=== PATIENT | female | born 1950 | race Caucasian/White ===

== ENCOUNTER → 2017-10-28 11:38 | Outpatient (REF) | payer MEDICARE, SELFPAY | LOC: NCHCN 11:38 | PROVIDERS: PCP Specialist/Technologist Athletic Trainer; Visit Provider Physician Assistant Medical | DX: N39.0 Urinary tract infection, site not specified (principal) | CPT/HCPCS: 87077; 87086; 87186 ==

== ENCOUNTER 2017-11-18 09:45 | Outpatient (REF) | payer MEDICARE, SELFPAY ==
[2017-11-18 20:32] LABS: ALT 10 U/L (12-78); AST 20 U/L (15-37); Albumin 3.5 g/dL (3.4-5.0); Alkaline Phosphatase 95 U/L (46-116); Anion Gap 9.2 mmol/L (3-11); BUN 15 mg/dL (7-18); Bilirubin, Total 0.5 mg/dL (0.2-1.0); CO2 25.8 mmol/L (21.0-32.0); CREATININE 0.87 mg/dL (0.55-1.02); Calcium 8.7 mg/dL (8.5-10.1); Chloride 105 mmol/L (98-107); Glucose 109 mg/dL (70-100); Potassium 4.3 mmol/L (3.5-5.1); Sodium 140 mmol/L (136-145); Total Protein 6.8 g/dL (6.4-8.2)
== END 2017-11-18 10:05 ==
LOC: NCHCN 09:45
PROVIDERS: PCP Specialist/Technologist Athletic Trainer; Visit Provider Physician Assistant Medical
DX: I10 Essential (primary) hypertension (principal)
CPT/HCPCS: 80053

== ENCOUNTER 2018-05-11 09:27 | Outpatient (REF) | payer MEDICARE, SELFPAY ==
[2018-05-11 21:08] LABS: ALT 13 U/L (12-78); AST 19 U/L (15-37); Albumin 3.6 g/dL (3.4-5.0); Alkaline Phosphatase 111 U/L (46-116); BUN 10 mg/dL (7-18); Bilirubin, Total 0.3 mg/dL (0.2-1.0); CREATININE 0.83 mg/dL (0.55-1.02); Calcium 9.3 mg/dL (8.5-10.1); Chloride 104 mmol/L (98-107); Cholesterol 160 mg/dL (50-200); Glucose 96 mg/dL (70-100); HDL Cholesterol 51 mg/dL (40-60); LDL CHOLESTEROL 88 mg/dL (<100); Potassium 4.2 mmol/L (3.5-5.1); Sodium 140 mmol/L (136-145); Total Protein 7.1 g/dL (6.4-8.2); Triglyceride 115 mg/dL (30-150)
== END 2018-05-11 09:47 ==
LOC: NCHCN 09:27
PROVIDERS: PCP Specialist/Technologist Athletic Trainer; Visit Provider Nurse Practitioner Family
DX: I10 Essential (primary) hypertension (principal); E78.5 Hyperlipidemia, unspecified
CPT/HCPCS: 80053; 80061; 83721

== ENCOUNTER 2018-10-26 21:29 | Outpatient (REF) | payer MEDICARE, SELFPAY | END 2018-10-26 21:49 | LOC: NCHCN 21:29 | PROVIDERS: PCP Nurse Practitioner Family; Visit Provider Physician Assistant Medical | DX: R60.0 Localized edema (principal) | CPT/HCPCS: 87077; 87086; 87186 ==

== ENCOUNTER 2019-08-10 10:18 | Outpatient (REF) | payer MEDICARE, SELFPAY | END 2019-08-10 10:38 | LOC: NCHCN 10:18 | PROVIDERS: PCP Nurse Practitioner Family; Visit Provider Physician Assistant Medical | DX: R30.0 Dysuria (principal) | CPT/HCPCS: 87077; 87086; 87186 ==

== ENCOUNTER 2019-09-05 14:48 | Outpatient (REF) | payer MEDICARE, SELFPAY | END 2019-09-05 15:08 | LOC: NCHCN 14:48 | PROVIDERS: PCP Nurse Practitioner Family; Visit Provider Physician Assistant Medical | DX: N39.0 Urinary tract infection, site not specified (principal) | CPT/HCPCS: 87077; 87086; 87186 ==

== ENCOUNTER 2019-09-29 11:53 | Outpatient (REF) | payer MEDICARE, SELFPAY ==
[2019-09-29 20:26] LABS: ALT 13 U/L (14-59); AST 21 U/L (15-37); Alkaline Phosphatase 90 U/L (46-116); Anion Gap 10.6 mmol/L (3-11); BUN 10 mg/dL (7-18); Bilirubin, Total 0.4 mg/dL (0.2-1.0); CO2 24.4 mmol/L (21.0-32.0); CREATININE 0.84 mg/dL (0.55-1.02); Calcium 9.3 mg/dL (8.5-10.1); Chloride 104 mmol/L (98-107); Glucose 90 mg/dL (74-106); HDL Cholesterol 46 mg/dL (40-60); LDL CHOLESTEROL 81 mg/dL (<100); Potassium 4.4 mmol/L (3.5-5.1); Sodium 139 mmol/L (136-145)
[2019-09-29 21:08] LABS: Albumin 3.9 g/dL (3.4-5.0); Creatine Kinase 133 U/L (26-192)
== END 2019-09-29 12:13 ==
LOC: NCHCN 11:53
PROVIDERS: PCP Nurse Practitioner Family; Visit Provider Nurse Practitioner Family
DX: E78.5 Hyperlipidemia, unspecified (principal); N39.0 Urinary tract infection, site not specified
CPT/HCPCS: 80053; 82550; 83721; 87077; 83718; 87086; 87186

== ENCOUNTER 2019-10-13 15:15 | Outpatient (REF) | payer MEDICARE, SELFPAY | END 2019-10-13 15:35 | LOC: NCHCN 15:15 | PROVIDERS: PCP Nurse Practitioner Family; Visit Provider Nurse Practitioner Family | DX: N39.0 Urinary tract infection, site not specified (principal) | CPT/HCPCS: 87077; 87086; 87186 ==

== ENCOUNTER 2019-12-02 11:04 | Outpatient (REF) | payer MEDICARE, SELFPAY | END 2019-12-02 11:24 | LOC: NCHCN 11:04 | PROVIDERS: PCP Nurse Practitioner Family; Visit Provider Physician Assistant Medical | DX: N39.0 Urinary tract infection, site not specified (principal) | CPT/HCPCS: 87077; 87086; 87186 ==

== ENCOUNTER 2020-07-02 09:56 | Outpatient (REF) | payer MEDICARE, SELFPAY ==
[2020-07-02 13:48] LABS: HCT 36.2 % (36.0-46.0); HGB 12.2 g/dL (11.2-15.7); MCH 30.9 pg (27.0-33.0); MCHC 33.7 % (32.0-36.0); MCV 91.6 fL (80-95); MPV 9.1 fL (8.0-11.0); Platelet Count 291 10^3/uL (130-400); RBC 3.95 10^6/uL (3.93-5.22); RDW 13.2 % (11.7-14.6); RDW-SD 45.2 fL; WBC 4.96 10^3/uL (4.4-10.8)
[2020-07-02 14:28] LABS: ALT 12 U/L (14-59); AST 17 U/L (15-37); Albumin 3.4 g/dL (3.4-5.0); Alkaline Phosphatase 89 U/L (46-116); Anion Gap 9.9 mmol/L (3-11); BUN 16 mg/dL (7-18); Bilirubin, Total 0.3 mg/dL (0.2-1.0); CO2 26.1 mmol/L (21.0-32.0); CREATININE 1.1 mg/dL (0.55-1.02); Calcium 8.9 mg/dL (8.5-10.1); Chloride 107 mmol/L (98-107); Glucose 92 mg/dL (74-106); HDL Cholesterol 49 mg/dL (40-60); LDL CHOLESTEROL 107 mg/dL (<100); Potassium 4.6 mmol/L (3.5-5.1); Sodium 143 mmol/L (136-145); Total Protein 6.6 g/dL (6.4-8.2)
[2020-07-02 14:46] LABS: Creatine Kinase 52 U/L (26-192)
== END 2020-07-02 09:57 | disposition home or self-care (01) ==
LOC: NCHCN 09:56
PROVIDERS: PCP Nurse Practitioner Family; Visit Provider Nurse Practitioner Family
DX: E78.5 Hyperlipidemia, unspecified (principal); I10 Essential (primary) hypertension; G43.D0 Abdominal migraine, not intractable
CPT/HCPCS: 80053; 82550; 83721; 85027; 83718

== ENCOUNTER 2020-10-16 04:09 | Outpatient (RCR) | payer MEDICARE, SELFPAY ==
--- NOTE | 2020-10-16 11:00 | HOLTER_ITS ---
APPROVED REPORT Conclusion This was a 48-hour Holter monitor ordered for syncope Rhythm throughout was sinus. Average heart rate was 80. Minimum was 64, maximum 126 A total of 3 isolated PVCs and 2 isolated atrial premature beats were seen There was no atrial fibrillation, no high-grade AV block, no pauses greater than 3 seconds
== END 2020-10-30 23:59 | disposition home or self-care (01) ==
LOC: RT 04:09
PROVIDERS: PCP Nurse Practitioner Family; Visit Provider Nurse Practitioner Family
DX: R55 Syncope and collapse (principal); I49.3 Ventricular premature depolarization; I49.1 Atrial premature depolarization
CPT/HCPCS: 93227; 93225; 93226

== ENCOUNTER 2021-07-10 18:13 | Outpatient (REF) | payer MEDICARE, SELFPAY ==
[2021-07-10 19:22] LABS: ALT 11 U/L (14-59); AST 17 U/L (15-37); Anion Gap 8.3 mmol/L (3-11); BUN 20 mg/dL (7-18); CO2 29.7 mmol/L (21.0-32.0); CREATININE 1.1 mg/dL (0.55-1.02); Chloride 105 mmol/L (98-107); Estimated GFR 48.82 (mL/min/1.73m2); Glucose 82 mg/dL (74-106); HDL Cholesterol 62 mg/dL (40-60); LDL CHOLESTEROL 105 mg/dL (<100); Potassium 4.7 mmol/L (3.5-5.1); Sodium 143 mmol/L (136-145)
[2021-07-10 21:59] LABS: Creatine Kinase 109 U/L (26-192)
== END 2021-07-10 18:14 | disposition home or self-care (01) ==
LOC: NCHCN 18:13
PROVIDERS: PCP Nurse Practitioner Family; Visit Provider Nurse Practitioner Family
DX: E78.5 Hyperlipidemia, unspecified (principal); K31.84 Gastroparesis
CPT/HCPCS: 80048; 82550; 83721; 83718; 84450; 84460

== ENCOUNTER 2021-08-22 16:39 | Outpatient (REF) | payer MEDICARE, SELFPAY | END 2021-08-22 16:40 | disposition home or self-care (01) | LOC: NCHCN 16:39 | PROVIDERS: PCP Nurse Practitioner Family; Visit Provider Family Medicine | DX: R30.0 Dysuria (principal); N39.0 Urinary tract infection, site not specified | CPT/HCPCS: 87077; 87086; 87186 ==

== ENCOUNTER → 2021-09-06 00:47 | Outpatient (CLI) | payer MEDICARE, SELFPAY ==
--- NOTE | 2021-09-06 14:49 | DI.DEXA_ITS ---
Exam(s) XR DEXA BONE DENSITY W/WO KATTY EXAM: XR DEXA BONE DENSITY W/WO KATTY CLINICAL HISTORY: MENOPAUSAL, Z78.0; SCREENING FOR OSTEOPOROSIS, Z13.820 TECHNIQUE: [employer] Horizon C densitometer analysis of left hip, lumbar spine and left forearm. COMPARISON: No exams were available for comparison FINDINGS: Lateral view of the thoracic and lumbar spine shows no evidence of compression fractures. Bone mineral density measurements of the lumbar spine correspond to a total T-score of -2.7, in the osteoporotic range. Bone mineral density measurements of the left hip correspond to a total T-score of -2.5 . The femora l neck T-score is -2.9, in the osteoporotic range. . The left forearm bone mineral density measurements correspond to a T-score of the distal 3rd of -2.1 , in the osteopenic range.. IMPRESSION: Osteoporosis of the lumbar spine and left hip. Osteopenia of the left forearm.
--- NOTE | 2021-09-06 15:00 | DI.MAMMO_ITS ---
Exam(s) MAMMO SCREENING EXAM: MAMMO SCREENING CLINICAL HISTORY: SCREENING, Z12.31 TECHNIQUE: Mammograms were interpreted according to the usual protocol including computer analysis w [employer] CAD system, tomosynthesis and C-view imaging. COMPARISON: 2013 through 2016 FINDINGS: The breasts are composed of heterogeneously dense fibroglandular densities, Breast Density category C . No suspicious masses or suspicious microcalcifications are seen. Stable area of nodularity in the storey perior right breast No skin thickening or abnormal axillary lymph nodes are seen. There has been no significant change from prior exams. IMPRESSION: BI-RADS Cat 2 - Benign Findings Yearly screening mammography is recommended. Breast Density Category C, heterogeneously Dense. The mammogram demonstrates the patient's breast tissue is dense. Dense breast tissue is very common a nd is not abnormal but dense breast tissue can make it harder to find cancer on a mammogram. Also, de nse breast tissue may increase breast cancer risk. This information about the result of the mammogram report was provided to the patient to raise their awareness. Use this report when you speak with the patient about their risks for breast cancer, which includes their family history. At that time, you may recommend additional screening tests (Ultrasound or MRI) as they might be useful based on their r isk. A negative radiographic report should not delay biopsy if a dominant or clinically suspicious mass is present. Up to ten percent of cancers are not identified on mammography. A negative report may reinforce clinical impression. Adenosis and dense breasts may obscure an underlying neoplasm. False positive reports average 6 to 10%.
== END ==
PROVIDERS: PCP Nurse Practitioner Family; Visit Provider Nurse Practitioner Family
DX: Z12.31 Encounter for screening mammogram for malignant neoplasm of breast (principal); Z13.820 Encounter for screening for osteoporosis; R92.8 Other abnormal and inconclusive findings on diagnostic imaging of breast; M81.0 Age-related osteoporosis without current pathological fracture; M85.832 Other specified disorders of bone density and structure, left forearm; Z78.0 Asymptomatic menopausal state
CPT/HCPCS: 77063; 77067; 77080

== ENCOUNTER → 2021-11-19 01:13 | Outpatient (CLI) | payer MEDICARE, SELFPAY ==
--- NOTE | 2021-11-19 11:15 | DI.US_ITS ---
Exam(s) US SOFT TISS ABD WALL/LOW BACK EXAM: US SOFT TISS ABD WALL/LOW BACK CLINICAL HISTORY: CYST, L72.9, RT FLANK AREA. TECHNIQUE: Ultrasound was performed using standard protocol. COMPARISON: US RENAL ULTRASOUND(P) from 03/31/2016 FINDINGS: Ultrasound examination of the area of concern on the posterior right paracentral aspect of the back w as performed. There is a relatively well-defined non cystic finding at this level measuring 5.4 x 5.2 x 2.6 cm. Brewster s appearance of a probable lipoma. No cystic the cross nor necrotic areas noted therein. Minimal bl ood flow noted therein. IMPRESSION: There is a nonvascular 5.4 x 5.2 x 2.6 cm non cystic probable fatty mass corresponding to the palpabl e finding. Probably a lipoma but cannot completely exclude more concerning pathology. Surgical cons ultation recommended. DATA REPOSITORY:
== END ==
PROVIDERS: PCP Nurse Practitioner Family; Visit Provider Nurse Practitioner Family
DX: L72.9 Follicular cyst of the skin and subcutaneous tissue, unspecified (principal)
CPT/HCPCS: 76705

== ENCOUNTER → 2021-12-04 09:19 | Outpatient (BNVA) | payer MEDICARE, SELFPAY | PROVIDERS: PCP Nurse Practitioner Family; Referring Provider Nurse Practitioner Family; Visit Provider Surgery | DX: L72.9 Follicular cyst of the skin and subcutaneous tissue, unspecified (principal) | CPT/HCPCS: 99213 ==

== ENCOUNTER 2022-01-03 06:08 | Day surgery (SDC) | payer MEDICARE, SELFPAY ==
--- NOTE | 2022-01-02 20:21 | PDOC.DSDIS_ITS ---
Date of service: 01/03/22 Time of Service: 08:03 Discharge Plan Disposition Patient Disposition: HOME Condition: Good Discharge Details Reason For Visit: excision and primary closure Attending Provider: Estevan Turner Primary Care Provider: Savanna Denny Home Meds and New Rx's Prescriptions: Continued acetaminophen [Tylenol] 325 MG tablet 325 mg PO PRN PRN simvastatin 20 mg tablet 20 mg PO QHS losartan [Cozaar] 25 mg tablet 25 mg PO DAILY amitriptyline 50 mg tablet 50 mg PO QHS domperidone 10 mg tablet 10 mg PO DAILY Rx Instructions: Medication comes from , GI, medication from Kristy per referral note pantoprazole [Protonix] 40 mg Tablet,Delayed Release (Dr/Ec) 40 mg PO DAILY Discharge Instructions Instructions: Lipoma Removal (DC) Additional Instructions: 1. Resume all of your medications. 2. Okay to use tylenol and ibuprofen over the counter as needed. 3. It is okay to use heating pads or cold packs in the area for your comfort 4. Leave bandage in place for 24 hours, then remove. 5. Shower with warm soapy water. Pat dry. Use a bandaid if needed to protect your clothing. 6. No soaking or tub baths until I see you in the office. 7. No heavy lifting until I see you in the office. 8.Call the office (or go directly to the emergency room after hours) if you notice any of the following: Develop chills (warm to touch), or if you have a thermometer and your temperature is above 101 Difficulty breathing or difficultly swallowing Persistent vomiting Any bleeding ? exceeding one tablespoon 9. Call your physician if the site where your intravenous was started becomes red, swollen, painful, and warm to touch. Referrals: Estevan Turner MD [ [facility] STAFF PHYSICIAN] - (10-14 days for routine follow up) Activity:: Activity as Tolerated Remove Dressings/Wound Care:: 24 hours Shower/Bathe:: 24 hours Diet:: As Tolerated Discharge Orders Discharge Orders: Discharge Order (Routine); Ordered 01/02/22 Ordered By: Estevan Turner DS: Diagnosis Discharge Diagnosis (1) Lipoma: Status: Acute Asessment and Plan: The lipoma has been completely excised. I will send it for pathology, and I will let you know about the final results when I get them from the lab.
--- NOTE | 2022-01-02 20:23 | W.PM.OP ---
Date of service: 01/03/22 Time of Service: 08:05 Operative Note Operative Note DATE OF PROCEDURE: 01/03/22 PRE-OP DIAGNOSIS: Lipoma POST-OP DIAGNOSIS: same PROCEDURE: Excision and linear closure of right lower back lipoma SURGEON: Estevan Turner DENTAL AMALGAM PROCESSOR: Ale Velazquez Refer to Anesthesia Record ESTIMATED BLOOD LOSS: 25 PATHOLOGY: other (Back mass) COMPLICATIONS: None Patient was transported to: same day Patient's condition: stable Indications: Selene is a 71-year-old woman with a growing right lower back soft tissue mass that seems consistent with lipoma. It is increasing in size, and causing more frequent discomfort. Procedure Description: After the institution of monitored anesthetic care, the patient was assisted into the left lateral decubitus position, and heavier sedation was introduced. Care was taken to pad all of the points of contact. I then prepped and draped the area in the usual fashion. I established a large field block with local anesthetic. Next, I made a longitudinal incision along the length of the soft tissue mass. I dissected down through the skin and subcutaneous tissues to the external capsule of what appeared to be a lipoma. Next, I began circumferential dissection of the mass that extended down to the muscular fascia. Great care was taken to encompass the capsule of the lipoma to minimize the chances of recurrence. The dissection was carried out along the cephalad and caudad aspects of the incision again elevating the mass off of the underlying soft tissues. When the dissection reached the medial most portion, the specimen was completely excised and passed off the field. All sent for permanent pathology because of the size of the mass, but it seems consistent with a simple lipoma. The surgical field was then carefully inspected. There was a small amount of bleeding from a focal point towards the medial aspect that was easily controlled with the Bovie. Next, the deep tissues were approximated with interrupted Vicryl stitches. Skin was closed with running subcuticular stitches. Bandages were applied, the patient was transferred to the recovery unit. Final excision diameters were approximately 11 cm long by 7 cm wide by 5 cm deep.
[2022-01-03 06:36] VITALS: BP 175/80; PULSE 102; RESP 16; TEMP 36.6; O2SAT 97
[2022-01-03] MEDS: Lactated Ringers 1,000 ML 80 ML IV (06:40)
[2022-01-03] MEDS: VANCOMYCIN/WATER (PEG) 1 GM/200 ML BAG IVPB (06:47)
[2022-01-03] MEDS: Celecoxib 200 MG CAP PO (06:53)
[2022-01-03] MEDS: Gabapentin 300 MG CAP 600 MG PO (06:53)
[2022-01-03] MEDS: Acetaminophen 500 MG TAB 1000 MG PO (06:53)
--- NOTE | 2022-01-03 07:06 | ANES.PREOP_ITS ---
General Info Date of Service Date Performed: 01/03/22 Height: 4 ft 11 in Weight: 53.4 kg Body Mass Index (BMI): 23.8 Surgical Procedure: Operation Date: 01/03/22 07:40 Proposed Procedure Side Surgeon p Excision and Linear Closure of Rt Flank Lipoma Right Estevan Turner MD Meds Allergies and Home Medications Allergies Allergy/AdvReac Type Severity Reaction Status Date / Time lisinopril Allergy Mild Pt doesn't Unverified 01/03/22 06:32 remember Penicillins Allergy Pt doesn't Unverified 01/03/22 06:32 remember Sulfa (Sulfonamide Allergy Pt doesn't Unverified 01/03/22 06:32 Antibiotics) remember Home Medication Medication Instructions Recorded acetaminophen 325 mg tablet 325 mg PO PRN PRN 03/24/16 (Tylenol) amitriptyline 50 mg tablet 50 mg PO QHS 11/15/21 domperidone 10 mg PO DAILY 11/15/21 losartan 25 mg tablet (Cozaar) 25 mg PO DAILY 11/15/21 simvastatin 20 mg tablet 20 mg PO QHS 11/15/21 pantoprazole 40 mg tablet,delayed 40 mg PO DAILY 01/01/22 release (Protonix) Current Visit Medications: Current Medications Generic Name Dose Route Start Last Admin Trade Name Freq PRN Reason Stop Dose Admin Acetaminophen 1,000 mg 01/03/22 06:00 01/03/22 06:53 Acetaminophen 500 Mg Tab PO 01/03/22 16:00 1,000 mg PREOP KELLEN Administration Celecoxib 200 mg 01/03/22 06:00 01/03/22 06:53 Celecoxib 200 Mg Cap PO 01/03/22 16:00 200 mg PREOP KELLEN Administration Gabapentin 600 mg 01/03/22 06:00 01/03/22 06:53 Gabapentin 300 Mg Cap PO 01/03/22 16:00 600 mg PREOP KELLEN Administration Ringer's Solution 1,000 mls @ 80 mls/hr 01/03/22 06:00 01/03/22 06:40 IV 02/01/22 23:59 80 mls/hr INFUSION KELLEN Administration Vancomycin/PEG/NADA/Lysine/Water 1 gm in 200 mls @ 200 mls/hr 01/03/22 06:00 01/03/22 06:47 Vancocin Injection IVPB 01/03/22 16:00 200 mls/hr PREOP KELLEN Administration Ondansetron HCl 8 mg/ Sodium 54 mls @ 200 mls/hr 01/02/22 20:24 Chloride IVPB Q6H PRN PRN IV Miscellaneous Supplies 1 each 01/03/22 06:00 Iv Access IV 02/01/22 23:59 DIRECTED KELLEN Morphine Sulfate 2 mg 01/02/22 20:24 Morphine 4 Mg/Ml Syr IVP Q1H PRN PRN Oxycodone HCl 5 mg 01/02/22 20:24 Oxycodone 5 Mg Tab PO Q3H PRN PRN Pain Sodium Chloride 0 ml 01/03/22 06:00 Normal Saline Flush 10 Ml Syr IV 02/01/22 23:59 PRN PRN Sodium Chloride 0 ml 01/03/22 06:00 Normal Saline 10 Ml Vial IJ 02/01/22 23:59 DIRECTED PRN Sterile Water 0 ml 01/03/22 06:00 Water,Injection,Sterile 10 Ml Vial IJ 02/01/22 23:59 DIRECTED PRN PFSH Active Problems Active Problems: Problem Status Onset Code Lipoma D17.9 Right flank pain R10.9 Osteoporosis M81.0 Medical History Medical History (Updated 01/02/22 @ 20:21 by Estevan Turner MD) Depression Gastroparesis H/O: HTN (hypertension) Hyperlipidemia Recurrent UTI Situational anxiety Spasm of abdominal muscles of right side Syncope and collapse Tobacco abuse Surgical History Surgical History Hx of cholecystectomy Tobacco Smoking/Tobacco Use Status: Former Tobacco Use Alcohol Alcohol Intake: never Substance Use Substance use: Never Substance use type: does not use Vital Signs and Lab Results Vital Signs Most Recent Vital Signs in EMR: Most Recent Vital Signs Temp Pulse Resp BP Pulse Ox 36.6 C 102 H 16 175/80 H 97 01/03/22 06:36 01/03/22 06:36 01/03/22 06:36 01/03/22 06:36 01/03/22 06:36 Lab Results Blood Type / Crossmatch: 2 No Data to Display Complete Blood Count: No Data to Display Complete Metabolic Panel: No Data to Display Liver Function Panel: No Data to Display Coagulation Panel: No Data to Display Cardiac Panel: No Data to Display Arterial Blood Gas: No Data to Display Venous Blood Gas: No Data to Display Pancreas Panel: No Data to Display Thyroid Panel: No Data to Display Infectious Disease: No Data to Display Blood Cultures: No Data to Display Toxicology Panel: No Data to Display Anesthesia Assessment and Plan Anesthesia History Personal History: No History of Anesthesia Complications Family History: No Family History of Anesthesia Complications Exercise Tolerance Exercise Tolerance: Metabolic Equivalents>4 Pertinent Negatives Pertinent Negatives: No Symptoms of GERD, No Major Cardiovascular Symptoms or Complaints, No Major Pulmonary Symptoms or Complaints and No History of CVA/TIA Cardiac & Pulmonary Exam Cardiac Exam: Normal S1/S2 Heart Sounds Pulmonary Exam: Clear Bilateral Breath Sounds Implantable Cardiac Device Does patient have a Pacemaker or an ICD?: No Airway Exam Known Difficult Airway: No Mallampati Class: 2 Mouth Opening: Normal (> 3cm) Thyromental Distance: Greater than 3 cm Neck Range of Motion: Full ROM Neck Circumference: Normal Teeth Condition: Normal Dentition and Removable Dentures/Plates Upper (Upper partial) ASA Classification ASA Score: ASA 2 Emergency Case?: No NPO Status NPO Status: NPO Clears >2 hours, Solids >8 hours Anesthesia Plan Resuscitation Status: Full Code Anesthesia Technique: General Anesthesia Airway Planned: Natural Airway Monitors Used: Standard Monitors
[2022-01-03 07:35] VITALS: BMI 23.8
[2022-01-03] MEDS: Bupivacaine 0.25% Pres-Free 30 ML VIAL (07:47)
--- NOTE | 2022-01-03 08:00 | SKI_PTH ---
PATIENT: Selene Rivera LOC: [facility] U#:[id number] AGE/SX: 71/F ROOM: RE01/03/[address]: Estevan Turner MD : 1950 BED: DIS: 01/03/2022 SPEC #: [id number] RECD: 01/03/22 11:29 STATUS: VIKY REAgustin #: [id number] HAYES: 01/03/22 08:[address]: Estevan Turner DEPT: Surgical Specimen RECD BY: Malu Michaels ENTERED: 01/03/22 11:30 SP TYPE: JOSIE MCNAMARA DR: Savanna Denny Tissues: 1 - SKIN BIOPSY(SHAVE/PUNCH) Procedures: GROSS AND MICRO LEVEL 4 MDM2F FISH, Tissue Interphases,25-99 Comments: [id number]
[2022-01-03 08:18] VITALS: BP 95/49; PULSE 71; RESP 16; TEMP 36.7; O2SAT 96
[2022-01-03 08:42] VITALS: BP 136/57; PULSE 73; RESP 18; TEMP 36.6; O2SAT 99
--- NOTE | 2022-01-03 09:31 | W.ANESPOSTOP ---
Postoperative Evaluation Date, Time and Location Date Performed: 01/03/22 Time Performed: 08:51 Patient Location: Day Surgery Unit Vital Signs Most Recent Imported Vital Signs: Most Recent Vital Signs Temp Pulse Resp BP Pulse Ox 36.6 C 73 18 136/57 L 99 01/03/22 08:42 01/03/22 08:42 01/03/22 08:42 01/03/22 08:42 01/03/22 08:42 Pain Score Most Recent Pain Score: Most Recent Pain Score Pain Level 0 01/03/22 08:42 Assessment Mental Status: Awake (Alert & Oriented to Patient Baseline) Airway and Respiratory Function: Patent airway with normal (patient baseline) respiratory exam Cardiovascular Function: Hemodynamically Stable Hydration Status: Adequately Hydrated Nausea & Vomiting: No Nausea or Vomiting Pain: Pt. Denies Any Pain Peripheral Nerve Block: Patient did not receive a nerve block
== END 2022-01-03 09:10 | disposition home or self-care (01) ==
LOC: SUR 06:08
PROVIDERS: PCP Nurse Practitioner Family; Visit Provider Surgery
PROC: (CPT 21931; principal; 2022-01-03 07:30)
DX: D17.1 Benign lipomatous neoplasm of skin and subcutaneous tissue of trunk (principal); F17.210 Nicotine dependence, cigarettes, uncomplicated; E78.5 Hyperlipidemia, unspecified
CPT/HCPCS: 21931; 88271; 88274; 88305; J1885; J2250; J2405

== ENCOUNTER → 2022-01-13 09:18 | Outpatient (BNVA) | payer MEDICARE, SELFPAY | PROVIDERS: PCP Nurse Practitioner Family; Referring Provider Nurse Practitioner Family; Visit Provider Surgery | DX: Z48.89 Encounter for other specified surgical aftercare (principal); D17.9 Benign lipomatous neoplasm, unspecified ==

== ENCOUNTER 2022-07-24 10:56 | Outpatient (REF) | payer MEDICARE, SELFPAY ==
[2022-07-24 15:35] LABS: ALT 16 U/L (14-59); AST 27 U/L (15-37); HDL Cholesterol 66 mg/dL (40-60); LDL CHOLESTEROL 106 mg/dL (<100)
== END 2022-07-24 10:57 | disposition home or self-care (01) ==
LOC: NCHCN 10:56
PROVIDERS: PCP Nurse Practitioner Family; Visit Provider Nurse Practitioner Family
DX: I10 Essential (primary) hypertension (principal); E78.5 Hyperlipidemia, unspecified
CPT/HCPCS: 83721; 83718; 84450; 84460

== ENCOUNTER 2022-08-04 09:29 | Day surgery (SDC) | payer MEDICARE, SELFPAY ==
[2022-08-04] MEDS: Tropicam./Phenyleph. (1/2.5%) 5 ML BTL OS ×3 (10:31→10:45)
[2022-08-04 10:34] VITALS: BP 184/79; PULSE 87; RESP 16; TEMP 36.3; O2SAT 98
[2022-08-04 10:39] VITALS: BP 171/83; PULSE 85
--- NOTE | 2022-08-04 11:49 | W.ANESPRE ---
General Info Date of Service Date Performed: 08/04/22 Height: 4 ft 11 in Weight: 57.9 kg Body Mass Index (BMI): 25.7 Surgical Procedure: Operation Date: 08/04/22 11:25 Proposed Procedure Side Surgeon p Cataract Extraction with IOL Implant Left Sarbjit Jhaveri MD Meds Allergies and Home Medications Allergies Allergy/AdvReac Type Severity Reaction Status Date / Time lisinopril Allergy Mild Pt doesn't Unverified 08/04/22 10:28 remember Penicillins Allergy Pt doesn't Unverified 08/04/22 10:28 remember Sulfa (Sulfonamide Allergy Pt doesn't Unverified 08/04/22 10:28 Antibiotics) remember Home Medication Medication Instructions Recorded acetaminophen 325 mg tablet 325 mg PO PRN PRN 03/24/16 (Tylenol) amitriptyline 50 mg tablet 50 mg PO QHS 11/15/21 domperidone 10 mg PO DAILY 11/15/21 losartan 25 mg tablet (Cozaar) 25 mg PO DAILY 11/15/21 simvastatin 20 mg tablet 20 mg PO QHS 11/15/21 pantoprazole 40 mg tablet,delayed 40 mg PO DAILY 01/01/22 release (Protonix) Current Visit Medications: Current Medications Generic Name Dose Route Start Last Admin Trade Name Freq PRN Reason Stop Dose Admin Acetaminophen 1,000 mg 08/04/22 06:00 Acetaminophen 500 Mg Tab PO 09/03/22 05:59 Q4H PRN PRN Balanced Salt Solution 500 ml 08/04/22 06:00 Balanced Salt Soln.-Plus 500 Ml Bag OP 09/03/22 05:59 DIRECTED [facility] Miscellaneous Medication 0 ml 08/04/22 06:00 Prednisolone 1%, Moxifloxacin 0.5%, Nepafenac 0.1% 5ml Btl OS 09/03/22 05:59 DIRECTED KELLEN Miscellaneous Medication 0 ml 08/04/22 06:00 08/04/22 10:45 Tropicam./Phenyleph. (1/2.5%) 5 Ml Btl OS 09/03/22 05:59 1 drp DIRECTED KELLEN Administration Tetracaine HCl 0 ml 08/04/22 06:00 Tetracaine 0.5% 4 Ml Btl OS 09/03/22 05:59 DIRECTED KELLEN PFSH Active Problems Active Problems: Problem Status Onset Code Right flank pain R10.9 Osteoporosis M81.0 Lipoma D17.9 Nuclear age-related cataract, left eye H25.12 Medical History Medical History Depression Gastroparesis H/O: HTN (hypertension) Hyperlipidemia Recurrent UTI Situational anxiety Spasm of abdominal muscles of right side Syncope and collapse Tobacco abuse Surgical History Surgical History (Updated 08/04/22 @ 10:27 by Meenakshi Wilder) Hx of cholecystectomy S/P excision of lipoma right back 2021 Tobacco Smoking/Tobacco Use Status: Former Tobacco Use Alcohol Alcohol Intake: never Substance Use Substance use: Never Substance use type: does not use Vital Signs and Lab Results Vital Signs Most Recent Vital Signs in EMR: Most Recent Vital Signs Temp Pulse Resp BP Pulse Ox 36.3 C L 85 16 171/83 H 98 08/04/22 10:34 08/04/22 10:39 08/04/22 10:34 08/04/22 10:39 08/04/22 10:34 Lab Results Blood Type / Crossmatch: No Data to Display Complete Blood Count: No Data to Display Complete Metabolic Panel: No Data to Display Liver Function Panel: Alanine Aminotransferase (ALT/SGPT) 16 U/L (14-59) 07/24/22 10:20 Aspartate Amino Transf (AST/SGOT) 27 U/L (15-37) 07/24/22 10:20 Coagulation Panel: No Data to Display Cardiac Panel: No Data to Display Arterial Blood Gas: No Data to Display Venous Blood Gas: No Data to Display Pancreas Panel: No Data to Display Thyroid Panel: No Data to Display Infectious Disease: No Data to Display Blood Cultures: No Data to Display Toxicology Panel: No Data to Display Anesthesia Assessment and Plan Anesthesia History Personal History: No History of Anesthesia Complications Family History: No Family History of Anesthesia Complications Exercise Tolerance Exercise Tolerance: Metabolic Equivalents>4 Pertinent Negatives Pertinent Negatives: No Symptoms of GERD Cardiac & Pulmonary Exam Cardiac Exam: Normal S1/S2 Heart Sounds Pulmonary Exam: Clear Bilateral Breath Sounds Implantable Cardiac Device Does patient have a Pacemaker or an ICD?: No Airway Exam Known Difficult Airway: No Mallampati Class: 2 Mouth Opening: Normal (> 3cm) Thyromental Distance: Greater than 3 cm Neck Range of Motion: Full ROM Neck Circumference: Normal Teeth Condition: Normal Dentition and Removable Dentures/Plates Upper (Upper partial) ASA Classification ASA Score: ASA 2 Emergency Case?: No NPO Status NPO Status: NPO Clears >2 hours, Solids >8 hours Anesthesia Plan Resuscitation Status: Full Code Anesthesia Technique: MAC Anesthesia Airway Planned: Natural Airway Monitors Used: Standard Monitors
[2022-08-04 11:50] VITALS: BMI 25.7
[2022-08-04] MEDS: Balanced Salt Soln.-PLUS 500 ML BAG OP (12:09)
[2022-08-04] MEDS: Tetracaine 0.5% 4 ML BTL OS (12:10)
[2022-08-04] MEDS: Lidocaine 1% Pres-Free 5 ML VIAL (12:10)
[2022-08-04] MEDS: Duovisc Viscoelastic System EACH 1 EACH (12:10)
[2022-08-04] MEDS: Phenylephrine/Lidocaine (15/10) MG/ML 1 ML VIAL (12:11)
[2022-08-04] MEDS: Povidone-Iodine Ophth 30 ML BTL (12:12)
--- NOTE | 2022-08-04 12:33 | W.PM.DSUDISC ---
Date of service: 08/04/22 Time of Service: 12:33 Discharge Plan Disposition Patient Disposition: Home Discharge Details Attending Provider: Sarbjit Jhaveri Primary Care Provider: Savanna Denny Home Meds and New Rx's Prescriptions: No Action acetaminophen [Tylenol] 325 MG tablet 325 mg PO PRN PRN simvastatin 20 mg tablet 20 mg PO QHS losartan [Cozaar] 25 mg tablet 25 mg PO DAILY amitriptyline 50 mg tablet 50 mg PO QHS domperidone 10 mg tablet 10 mg PO DAILY Rx Instructions: Medication comes from , GI, medication from Kristy per referral note pantoprazole [Protonix] 40 mg Tablet,Delayed Release (Dr/Ec) 40 mg PO DAILY Discharge Instructions Stand Alone Forms: Post-op Topical Cataract, Sabas Garcia (DSU) Discharge Orders Discharge Orders: Discharge Order (Routine); Ordered 08/04/22 Ordered By: Sarbjit Jhaveri DS: Diagnosis Discharge Diagnosis (1) Nuclear age-related cataract, left eye: Status: Resolved
--- NOTE | 2022-08-04 12:35 | ROE_ITS ---
Date of service: 08/04/22 Time of Service: 12:35 Operative Note Operative Note DATE OF PROCEDURE: 08/04/22 PRE-OP DIAGNOSIS: Dense nuclear cataract, left eye POST-OP DIAGNOSIS: same PROCEDURE: Cataract extraction using phacoemulsification with intraocular lens implant, left eye SURGEON: Sarbjit Jhaveri ANESTHESIA TYPE: Local By Surgeon and MAC Refer to Anesthesia Record PATHOLOGY: none sent COMPLICATIONS: None Patient was transported to: same day Patient's condition: stable Implants: Cole Clareon [id number] Indications: Progressive decreased vision due to cataract, left eye Procedure Description: CATARACT SURGERY OPERATIVE REPORT PREOPERATIVE DIAGNOSIS: Dense nuclear cataract, left eye POSTOPERATIVE DIAGNOSIS: Same OPERATION: Cataract extraction using phacoemulsification with posterior chamber intraocular lens implant, left eye. IOL: IOL Account Manager Education/Model: Cole Clareon [id number] IOL Power: + 23.5 diopters IOL Serial Number: [id number] Optic Diameter: 6.0mm Haptic/Overall Diameter: 13.0mm PHACO INFO: Cole AW-Energyurion Vision System with OZil and Active Fluidics Cumulative Dispersed Energy (CDE): 17.89 seconds SURGEON: Sarbjit Jhaveri MD, BEVERLY ANESTHESIA: Monitored Anesthesia Care (MAC), with local sub-tenon's anesthetic infiltration COMPLICATIONS: None SPECIMENS: None INDICATIONS FOR PROCEDURE: The patient is a 72-year-old lady with history of diminished visual acuity in her left eye secondary to the development of dense nuclear cataract. She is significantly symptomatic that she desires cataract surgery and attempt to improve and maximize her vision. The option of cataract surgery was offered to the patient and she wished to proceed. See office notes for detailed information. PROCEDURE: The correct surgical eye was identified and marked as the left eye and the pupil was dilated in the preoperative area using mydriatics and cycloplegics. The dilated pupil size was 5.5 mm. The patient elected to proceed without oral sedation. The patient was brought to the operating room where cardiopulmonary monitoring was instituted and surgical time-out was performed, confirming the correct operative eye and IOL power. Topical anesthesia was administered and ophthalmic povidone-iodine 5% was instilled into the conjunctival fornices. The alena-ocular area was prepped with Betadine 10% solution and draped in the usual sterile fashion for intraocular surgery, including an aperture drape. A Tegaderm transparent film dressing was cut in half and used to cover the lashes and lid margins. Care was taken to sequester the lashes and lid margins under the Tegaderm dressing. A lid speculum was placed between the lids of the operative eye and the Cole Lux[employer] Revalia operating microscope was maneuvered into position. Corinne scissors were then used to make a conjunctival buttonhole approximately 6mm posterior to the limbus in the inferonasal quadrant. Blunt dissection was carried out to expose bare sclera, and a blunt-tipped sub-tenon?s anesthesia cannula was introduced and passed posteriorly along the globe where non- preserved plain lidocaine was injected into posterior sub-Tenon?s space. A sideport knife was used to make a paracentesis port. Intraocular phenylephrine/lidocaine was injected into the anterior chamber. The anterior chamber was then filled with viscoelastic. A keratome knife was used construct a two-plane clear corneal tunnel extending 2.0mm into clear cornea. A flap was raised on the anterior capsule and capsulorhexis forceps were used to complete a continuous curvilinear capsulorhexis of 5.5 mm. Balanced salt solution was then used to perform cortical cleaving hydrodissection and nuclear hydrodelineation until the lens could be freely rotated within the capsular bag. The lens nucleus was then disassembled and removed within the capsular bag and iris plane using phacoemulsification. Residual cortical material was removed using the irrigation/aspiration handpiece. The posterior capsule was carefully polished to remove as much residual lens epithelial cells as safely possible. The capsular bag was then inflated and the anterior chamber deepened with viscoelastic. The lens implant described above was inserted into the capsular bag using the Cole Autonome Injector. A Kuglen hook was used to dial the IOL into position. Residual viscoelastic was then removed first from posterior to the IOL, then from the anterior chamber using the I/A handpiece. The lens implant was noted to center nicely within the capsular bag. The incisions were stromally hydrated, and the anterior chamber was reformed using BSS. Then 0.5cc of moxifloxacin 1.0mg/ml were injected into the capsular bag and anterior chamber. The incisions were checked with a Weck spear and found to be secure. Several drops of ophthalmic povidone-iodine 5% were then applied to the eye followed by two drops of Imprimis combination prednisolone/moxifloxacin/nepafenac solution. The drapes were removed and a clear plastic protective eye shield was placed over the eye. The patient was then returned to Same Day Surgery in stable condition.
[2022-08-04 12:38] VITALS: BP 167/85; PULSE 87; RESP 18; TEMP 36.3; O2SAT 99
--- NOTE | 2022-08-04 12:42 | W.ANESPOSTOP ---
Postoperative Evaluation Date, Time and Location Date Performed: 08/04/22 Time Performed: 12:42 Patient Location: Day Surgery Unit Vital Signs Most Recent Imported Vital Signs: Most Recent Vital Signs Temp Pulse Resp BP Pulse Ox 36.3 C L 87 18 167/85 H 99 08/04/22 12:38 08/04/22 12:38 08/04/22 12:38 08/04/22 12:38 08/04/22 12:38 Pain Score Most Recent Pain Score: Most Recent Pain Score Pain Level 0 08/04/22 12:38 Assessment Mental Status: Awake (Alert & Oriented to Patient Baseline) Airway and Respiratory Function: Patent airway with normal (patient baseline) respiratory exam Cardiovascular Function: Hemodynamically Stable Hydration Status: Adequately Hydrated Nausea & Vomiting: No Nausea or Vomiting Pain: Pt. Denies Any Pain Peripheral Nerve Block: Patient did not receive a nerve block
== END 2022-08-04 12:57 | disposition home or self-care (01) ==
PROVIDERS: PCP Nurse Practitioner Family; Visit Provider Ophthalmology
PROC: (CPT 66984; principal; 2022-08-04 11:15)
DX: H25.12 Age-related nuclear cataract, left eye (principal); I10 Essential (primary) hypertension
CPT/HCPCS: 66984; V2632

== ENCOUNTER 2022-08-15 09:34 | Day surgery (SDC) | payer MEDICARE, SELFPAY ==
[2022-08-15 10:25] VITALS: BP 188/86; PULSE 98; RESP 16; TEMP 36.9; O2SAT 97
[2022-08-15] MEDS: Tropicam./Phenyleph. (1/2.5%) 5 ML BTL OD ×3 (10:31→10:43)
--- NOTE | 2022-08-15 10:35 | W.ANESPRE ---
General Info Date of Service Date Performed: 08/15/22 Height: 4 ft 11 in Weight: 56.5 kg Body Mass Index (BMI): 25.1 Surgical Procedure: Operation Date: 08/15/22 12:40 Proposed Procedure Side Surgeon p Cataract Extraction with IOL Implant Right Sarbjit Jhaveri MD Meds Allergies and Home Medications Allergies Allergy/AdvReac Type Severity Reaction Status Date / Time lisinopril Allergy Mild Pt doesn't Verified 08/15/22 10:23 remember Penicillins Allergy Pt doesn't Verified 08/15/22 10:23 remember Sulfa (Sulfonamide Allergy Pt doesn't Verified 08/15/22 10:23 Antibiotics) remember Home Medication Medication Instructions Recorded acetaminophen 325 mg tablet 325 mg PO PRN PRN 03/24/16 (Tylenol) amitriptyline 50 mg tablet 50 mg PO QHS 11/15/21 domperidone 10 mg PO DAILY 11/15/21 losartan 25 mg tablet (Cozaar) 25 mg PO DAILY 11/15/21 simvastatin 20 mg tablet 20 mg PO QHS 11/15/21 pantoprazole 40 mg tablet,delayed 40 mg PO DAILY 01/01/22 release (Protonix) Current Visit Medications: Current Medications Generic Name Dose Route Start Last Admin Trade Name Freq PRN Reason Stop Dose Admin Acetaminophen 1,000 mg 08/15/22 06:00 Acetaminophen 500 Mg Tab PO 09/14/22 05:59 Q4H PRN PRN Balanced Salt Solution 500 ml 08/15/22 06:00 Balanced Salt Soln.-Plus 500 Ml Bag OP 09/14/22 05:59 DIRECTED [facility] Miscellaneous Medication 0 ml 08/15/22 06:00 Prednisolone 1%, Moxifloxacin 0.5%, Nepafenac 0.1% 5ml Btl OD 09/14/22 05:59 DIRECTED [facility] Miscellaneous Medication 0 ml 08/15/22 06:00 08/15/22 10:31 Tropicam./Phenyleph. (1/2.5%) 5 Ml Btl OD 09/14/22 05:59 1 drp DIRECTED [facility] Administration Tetracaine HCl 0 ml 08/15/22 06:00 Tetracaine 0.5% 4 Ml Btl OD 09/14/22 05:59 DIRECTED [facility] PFSH Active Problems Active Problems: Problem Status Onset Code Nuclear age-related cataract, right eye H25.11 Right flank pain R10.9 Osteoporosis M81.0 Lipoma D17.9 Nuclear age-related cataract, left eye H25.12 Medical History Medical History Depression Gastroparesis H/O: HTN (hypertension) Hyperlipidemia Recurrent UTI Situational anxiety Spasm of abdominal muscles of right side Syncope and collapse Tobacco abuse Surgical History Surgical History Hx of cholecystectomy S/P excision of lipoma right back 2021 Tobacco Smoking/Tobacco Use Status: Former Tobacco Use Alcohol Alcohol Intake: never Substance Use Substance use: Never Substance use type: does not use Vital Signs and Lab Results Vital Signs Most Recent Vital Signs in EMR: Most Recent Vital Signs Temp Pulse Resp BP Pulse Ox 36.9 C 98 H 16 188/86 H 97 08/15/22 10:25 08/15/22 10:25 08/15/22 10:25 08/15/22 10:25 08/15/22 10:25 Lab Results Blood Type / Crossmatch: No Data to Display Complete Blood Count: No Data to Display Complete Metabolic Panel: No Data to Display Liver Function Panel: Alanine Aminotransferase (ALT/SGPT) 16 U/L (14-59) 07/24/22 10:20 Aspartate Amino Transf (AST/SGOT) 27 U/L (15-37) 07/24/22 10:20 Coagulation Panel: No Data to Display Cardiac Panel: No Data to Display Arterial Blood Gas: No Data to Display Venous Blood Gas: No Data to Display Pancreas Panel: No Data to Display Thyroid Panel: No Data to Display Infectious Disease: No Data to Display Blood Cultures: No Data to Display Toxicology Panel: No Data to Display Anesthesia Assessment and Plan Anesthesia History Personal History: No History of Anesthesia Complications Family History: No Family History of Anesthesia Complications Exercise Tolerance Exercise Tolerance: Metabolic Equivalents>4 Pertinent Negatives Pertinent Negatives: No Symptoms of GERD (took meds today), No Major Cardiovascular Symptoms or Complaints and No Major Pulmonary Symptoms or Complaints Cardiac & Pulmonary Exam Cardiac Exam: Normal S1/S2 Heart Sounds Pulmonary Exam: Clear Bilateral Breath Sounds Implantable Cardiac Device Does patient have a Pacemaker or an ICD?: No Airway Exam Known Difficult Airway: No Mallampati Class: 2 Mouth Opening: Normal (> 3cm) Thyromental Distance: Greater than 3 cm Neck Range of Motion: Full ROM Neck Circumference: Normal Teeth Condition: Normal Dentition and Removable Dentures/Plates Upper (Upper partial) ASA Classification ASA Score: ASA 2 Emergency Case?: No NPO Status NPO Status: NPO Clears >2 hours, Solids >8 hours Anesthesia Plan Resuscitation Status: Full Code Anesthesia Technique: MAC Anesthesia Airway Planned: Natural Airway Monitors Used: Standard Monitors Preoperative Comments:: Whiteside claustrophic last time, will use drape elevator this time, offered MKO, patient wishes to proceed without medication
[2022-08-15 11:17] VITALS: BMI 25.1
[2022-08-15 11:50] VITALS: BP 164/67; PULSE 87; RESP 16
[2022-08-15] MEDS: Povidone-Iodine Ophth 30 ML BTL (12:03)
[2022-08-15] MEDS: Tetracaine 0.5% 4 ML BTL OD (12:03)
[2022-08-15] MEDS: Duovisc Viscoelastic System EACH 1 EACH (12:08)
[2022-08-15] MEDS: Balanced Salt Soln.-PLUS 500 ML BAG OP (12:08)
[2022-08-15] MEDS: Phenylephrine/Lidocaine (15/10) MG/ML 1 ML VIAL (12:10)
[2022-08-15] MEDS: Lidocaine 1% Pres-Free 5 ML VIAL (12:11)
[2022-08-15 12:29] VITALS: BP 154/74; PULSE 93; RESP 16; TEMP 36.7; O2SAT 98
--- NOTE | 2022-08-15 12:31 | W.PM.DSUDISC ---
Date of service: 08/15/22 Time of Service: 12:31 Discharge Plan Disposition Patient Disposition: Home Discharge Details Attending Provider: Sarbjit Jhaveri Primary Care Provider: Savanna Denny Home Meds and New Rx's Prescriptions: No Action acetaminophen [Tylenol] 325 MG tablet 325 mg PO PRN PRN simvastatin 20 mg tablet 20 mg PO QHS losartan [Cozaar] 25 mg tablet 25 mg PO DAILY amitriptyline 50 mg tablet 50 mg PO QHS domperidone 10 mg tablet 10 mg PO DAILY Rx Instructions: Medication comes from , GI, medication from Kristy per referral note pantoprazole [Protonix] 40 mg Tablet,Delayed Release (Dr/Ec) 40 mg PO DAILY Discharge Instructions Stand Alone Forms: Post-op Topical Cataract, Sabas Garcia (DSU) Discharge Orders Discharge Orders: Discharge Order (Routine); Ordered 08/15/22 Ordered By: Sarbjit Jhaveri DS: Diagnosis Discharge Diagnosis (1) Nuclear age-related cataract, right eye: Status: Resolved
--- NOTE | 2022-08-15 12:32 | W.PM.OP ---
Date of service: 08/15/22 Time of Service: 12:32 Operative Note Operative Note DATE OF PROCEDURE: 08/15/22 PRE-OP DIAGNOSIS: Nuclear cataract, right eye POST-OP DIAGNOSIS: same PROCEDURE: Cataract extraction using phacoemulsification with intraocular lens implant, right eye SURGEON: Sarbjit Jhaveri ANESTHESIA TYPE: Local By Surgeon and MAC Refer to Anesthesia Record ESTIMATED BLOOD LOSS: 0 PATHOLOGY: none sent COMPLICATIONS: None Patient was transported to: same day Patient's condition: stable Implants: Cole Clareon [id number] Indications: Progressive decreased vision due to cataract, right eye Procedure Description: CATARACT SURGERY OPERATIVE REPORT PREOPERATIVE DIAGNOSIS: Nuclear cataract, right eye POSTOPERATIVE DIAGNOSIS: Same OPERATION: Cataract extraction using phacoemulsification with posterior chamber intraocular lens implant, right eye. IOL: IOL Teletype Mechanic/Model: Cole Clareon [id number] IOL Power: + 23.5 diopters IOL Serial Number: [id number] Optic Diameter: 6.0mm Haptic/Overall Diameter: 13.0mm PHACO INFO: Cole PassportParkingurion Vision System with OZil and Active Fluidics Cumulative Dispersed Energy (CDE): 11.89 seconds SURGEON: Sarbjit Jhaveri MD, [place] ANESTHESIA: Monitored Anesthesia Care (MAC), with local sub-tenon's anesthetic infiltration COMPLICATIONS: None SPECIMENS: None INDICATIONS FOR PROCEDURE: The patient is a 72-year-old lady with history of diminished visual acuity in her right eye secondary to the development of nuclear cataract. She has already undergone cataract surgery in the left eye and is doing well postoperatively. She now presents for cataract surgery in the right eye. PROCEDURE: The correct surgical eye was identified and marked as the right eye and the pupil was dilated in the preoperative area using mydriatics and cycloplegics. The dilated pupil size was 6.0 mm. . The patient elected to proceed without oral sedation. The patient was brought to the operating room where cardiopulmonary monitoring was instituted and surgical time-out was performed, confirming the correct operative eye and IOL power. Topical anesthesia was administered and ophthalmic povidone-iodine 5% was instilled into the conjunctival fornices. The alena-ocular area was prepped with Betadine 10% solution and draped in the usual sterile fashion for intraocular surgery, including an aperture drape. A Tegaderm transparent film dressing was cut in half and used to cover the lashes and lid margins. Care was taken to sequester the lashes and lid margins under the Tegaderm dressing. A lid speculum was placed between the lids of the operative eye and the Monica-Scotty operating microscope was maneuvered into position. Corinne scissors were then used to make a conjunctival buttonhole approximately 6mm posterior to the limbus in the inferonasal quadrant. Blunt dissection was carried out to expose bare sclera, and a blunt-tipped sub-tenon?s anesthesia cannula was introduced and passed posteriorly along the globe where non-preserved plain lidocaine was injected into posterior sub-Tenon?s space. A sideport knife was used to make a paracentesis port. Intraocular phenylephrine/lidocaine was injected into the anterior chamber. The anterior chamber was then filled with viscoelastic. A keratome knife was used to construct a two--plane clear corneal tunnel extending 2.0mm into clear cornea. A flap was raised on the anterior capsule and capsulorhexis forceps were used to complete a continuous curvilinear capsulorhexis of 5.0 mm. Balanced salt solution was then used to perform cortical cleaving hydrodissection and nuclear hydrodelineation until the lens could be freely rotated within the capsular bag. The lens nucleus was then disassembled and removed within the capsular bag and iris plane using phacoemulsification. Residual cortical material was removed using the I/A handpiece. The posterior capsule was carefully polished to remove as much residual lens epithelial cells as safely possible. The capsular bag was then inflated and the anterior chamber deepened with cohesive viscoelastic. The lens implant described above was inserted into the capsular bag using the Cole Autonome Injector. A Kuglen hook was used to dial the IOL into position. Residual viscoelastic was then removed first from posterior to the IOL, then from the anterior chamber using the I/A handpiece. The lens implant was noted to center nicely within the capsular bag. The incisions were stromally hydrated, and the anterior chamber was reformed using BSS. Then 0.5cc of moxifloxacin 1.0mg/ml were injected into the capsular bag and anterior chamber. The incisions were checked with a Weck spear and found to be secure. Several drops of ophthalmic povidone-iodine 5% were then applied to the eye followed by two drops of Imprimis combination prednisolone/moxifloxacin/nepafenac solution. The drapes were removed and a clear plastic protective eye shield was placed over the eye. The patient was then returned to Same Day Surgery in stable condition.
--- NOTE | 2022-08-15 12:50 | W.ANESPOSTOP ---
Postoperative Evaluation Date, Time and Location Date Performed: 08/15/22 Time Performed: 12:36 Patient Location: Day Surgery Unit Vital Signs Most Recent Imported Vital Signs: Most Recent Vital Signs Temp Pulse Resp BP Pulse Ox 36.7 C 93 H 16 154/74 H 98 08/15/22 12:29 08/15/22 12:29 08/15/22 12:29 08/15/22 12:29 08/15/22 12:29 Pain Score Most Recent Pain Score: Most Recent Pain Score Pain Level 1 08/15/22 12:29 Assessment Mental Status: Awake (Alert & Oriented to Patient Baseline) Airway and Respiratory Function: Patent airway with normal (patient baseline) respiratory exam Cardiovascular Function: Hemodynamically Stable Hydration Status: Adequately Hydrated Nausea & Vomiting: No Nausea or Vomiting Pain: Pt. Denies Any Pain Peripheral Nerve Block: Patient did not receive a nerve block
== END 2022-08-15 12:55 | disposition home or self-care (01) ==
LOC: SUR 09:34
PROVIDERS: PCP Nurse Practitioner Family; Visit Provider Ophthalmology
PROC: (CPT 66984; principal; 2022-08-15 12:30)
DX: H25.11 Age-related nuclear cataract, right eye (principal); I10 Essential (primary) hypertension; Z98.42 Cataract extraction status, left eye
CPT/HCPCS: 66984; V2632

== ENCOUNTER 2022-12-15 15:12 | Outpatient (REF) | payer MEDICARE, SELFPAY ==
[2022-12-15 17:30] LABS: Anion Gap 6.8 mmol/L (3-11); BUN 13 mg/dL (7-18); CO2 28.2 mmol/L (21.0-32.0); CREATININE 0.9 mg/dL (0.55-1.02); Calcium 9.3 mg/dL (8.5-10.1); Chloride 102 mmol/L (98-107); Creatine Kinase 93 U/L (26-192); Glucose 99 mg/dL (74-106); Potassium 4.4 mmol/L (3.5-5.1); Sodium 137 mmol/L (136-145)
== END 2022-12-15 15:13 | disposition home or self-care (01) ==
LOC: NCHCN 15:12
PROVIDERS: PCP Nurse Practitioner Family; Visit Provider Nurse Practitioner Family
DX: I10 Essential (primary) hypertension (principal)
CPT/HCPCS: 80048; 82550

== ENCOUNTER 2023-07-06 11:22 | Outpatient (REF) | payer MEDICARE, SELFPAY ==
[2023-07-06 16:30] LABS: ALT 13 U/L (14-59); AST 20 U/L (15-37); Anion Gap 11.7 mmol/L (3-11); BUN 18 mg/dL (7-18); CO2 26.3 mmol/L (21.0-32.0); CREATININE 1.1 mg/dL (0.55-1.02); Chloride 104 mmol/L (98-107); Creatine Kinase 88 U/L (26-192); Estimated GFR 53.06 (mL/min/1.73m2); Glucose 107 mg/dL (74-106); HDL Cholesterol 64 mg/dL (40-60); LDL CHOLESTEROL 70 mg/dL (<100); Potassium 4.3 mmol/L (3.5-5.1); Sodium 142 mmol/L (136-145)
== END 2023-07-06 11:23 | disposition home or self-care (01) ==
LOC: NCHCN 11:22
PROVIDERS: PCP Nurse Practitioner Family; Visit Provider Nurse Practitioner Family
DX: I10 Essential (primary) hypertension (principal); E78.5 Hyperlipidemia, unspecified
CPT/HCPCS: 80048; 82550; 83721; 83718; 84450; 84460

== ENCOUNTER → 2023-07-15 04:22 | Outpatient (CLI) | payer MEDICARE, SELFPAY ==
--- NOTE | 2023-07-15 | DI.MAMMO_ITS ---
Exam(s) MAMMO SCREENING EXAM: MAMMO SCREENING CLINICAL HISTORY: Z12.31 Screening TECHNIQUE: Bilateral full field digital CC and MLO mammographic images were obtained with 3D tomosyn thesis and utilizing computer aided detection (CAD). COMPARISON: Available for comparison. FINDINGS: Masses/Architectural Distortion: There is again seen a stable area of nodularity in the upper central right breast. No new nodules are seen. No areas of architectural distortion are present. Microcalcifications: No suspicious pleomorphic-type are seen. Skin Thickening/Nipple Retraction: None. IMPRESSION: 1. No significant interval change with no specific features of malignancy noted. 2. Unless there is more urgent need, screening mammography is recommended, as per [place] guidelines. BI-RADS Category 2 - Benign Findings Breast Density - Category C - Heterogeneously dense Breast density category C or D implies that the patient has dense breast tissue. Dense breast tissue is very common and is not abnormal but dense breast tissue can make it harder to find cancer on a ma mmogram. Also, dense breast tissue may increase their breast cancer risk. This information about the result of the mammogram report was provided to the patient to raise their awareness. Use this report when you speak with the patient about their risks for breast cancer, which includes their family hist ory. At that time, you may recommend for more screening tests (Ultrasound or MRI) as they might be us eful based on their risk. A negative radiographic report should not delay biopsy if a dominant or clinically suspicious mass is present. Up to ten percent of cancers are not identified on mammography. A negative report may reinforce clinical impression. Adenosis and dense breasts may obscure an underlying neoplasm. False positive reports average 6 to 10%. Patient will receive a letter notifying them of these results.
== END ==
PROVIDERS: PCP Nurse Practitioner Family; Visit Provider Nurse Practitioner Family
DX: Z12.31 Encounter for screening mammogram for malignant neoplasm of breast (principal); R92.333 Mammographic heterogeneous density, bilateral breasts
CPT/HCPCS: 77063; 77067

== ENCOUNTER 2024-01-06 12:35 | Outpatient (REF) | payer MEDICARE, SELFPAY ==
[2024-01-06 15:33] LABS: Abs Immature Grans 0.01 10^3/uL (0.0-0.06); Absolute Basophil Count 0.04 10^3/uL (0.0-0.2); Absolute Eosinophil Count 0.09 10^3/uL (0.0-0.7); Absolute Lymphocyte Count 1.43 10^3/uL (1.2-3.4); Absolute Monocyte Count 0.37 10^3/uL (0.1-0.8); Absolute Neutrophil Count 3.52 10^3/uL (1.2-6.7); Basophils % 0.7 %; Eosinophils % 1.6 %; HCT 41.8 % (36.0-46.0); Immature Grans % 0.2 %; Lymphocytes % 26.2 %; MCH 30.2 pg (27.0-33.0); MCHC 33.5 % (32.0-36.0); MCV 90 fL (80-95); MPV 9.3 fL (8.0-11.0); Monocytes % 6.8 %; Neutrophils % 64.5 %; Platelet Count 318 10^3/uL (130-400); RBC 4.64 10^6/uL (3.93-5.22); RDW 13.4 % (11.7-14.6); RDW-SD 44.6 fL; WBC 5.46 10^3/uL (4.4-10.8)
[2024-01-06 16:06] LABS: ALT 13 U/L (14-59); AST 21 U/L (15-37); Albumin 3.7 g/dL (3.4-5.0); Alkaline Phosphatase 103 U/L (46-116); Anion Gap 6.1 mmol/L (3-11); BUN 13 mg/dL (7-18); Bilirubin, Total 0.65 mg/dL (0.2-1.0); CO2 29.9 mmol/L (21.0-32.0); Calcium 9.4 mg/dL (8.5-10.1); Calculated LDL 88 mg/dL (<100); Chloride 106 mmol/L (98-107); Cholesterol 174 mg/dL (<200); Estimated GFR 59.12 (mL/min/1.73m2); Glucose 103 mg/dL (74-106); HDL Cholesterol 70 mg/dL (40-60); Potassium 4.7 mmol/L (3.5-5.1); Sodium 142 mmol/L (136-145); TSH (W/Ref FT4) 1.48 uIU/mL (0.36-3.74); Total Protein 7.3 g/dL (6.4-8.2); Triglyceride 84 mg/dL (<150); Vitamin D 25 Total 36.6 ng/mL (30-100)
[2024-01-06 16:38] LABS: Hemoglobin A1C 5.8 % (<5.7)
== END 2024-01-06 12:36 | disposition home or self-care (01) ==
LOC: NCHCN 12:35
PROVIDERS: PCP Nurse Practitioner Family; Visit Provider Physician Assistant Medical
DX: I10 Essential (primary) hypertension (principal); M81.0 Age-related osteoporosis without current pathological fracture
CPT/HCPCS: 80053; 80061; 82306; 83036; 84443; 85025

== ENCOUNTER 2024-10-03 16:07 | Outpatient (REF) | payer MEDICARE, SELFPAY ==
[2024-10-03 16:06] LABS: Abs Immature Grans 0.00 10^3/uL (0.0-0.06); HCT 39.7 % (36.0-46.0); HGB 13.1 g/dL (11.2-15.7); Immature Grans % 0.0 %; MCH 30.4 pg (27.0-33.0); MCHC 33.0 % (32.0-36.0); MCV 92 fL (80-95); MPV 9.2 fL (8.0-11.0); Platelet Count 291 10^3/uL (130-400); RBC 4.31 10^6/uL (3.93-5.22); RDW 12.4 % (11.7-14.6); RDW-SD 42.3 fL; WBC 4.14 10^3/uL (4.4-10.8)
[2024-10-03 16:29] LABS: Hemoglobin A1C 5.6 % (<5.7)
[2024-10-03 17:15] LABS: ALT 14 U/L (14-59); AST 29 U/L (15-37); Albumin 3.8 g/dL (3.4-5.0); Alkaline Phosphatase 102 U/L (46-116); Anion Gap 6.9 mmol/L (3-11); BUN 16 mg/dL (7-18); Bilirubin, Total 0.5 mg/dL (0.2-1.0); CO2 31.1 mmol/L (21.0-32.0); Calcium 9.1 mg/dL (8.5-10.1); Calculated LDL 94 mg/dL (<100); Chloride 102 mmol/L (98-107); Cholesterol 175 mg/dL (<200); Estimated GFR 66.67 (mL/min/1.73m2); Ferritin 141 ng/mL (8-252); Glucose 92 mg/dL (74-106); HDL Cholesterol 65 mg/dL (>or=50); Magnesium 2.0 mg/dL (1.8-2.4); Potassium 4.7 mmol/L (3.5-5.1); Sodium 140 mmol/L (136-145); Total Protein 7.2 g/dL (6.4-8.2); Triglyceride 84 mg/dL (<150); Vitamin D 25 Total 43 ng/mL (30-100)
[2024-10-03 17:38] LABS: Iron 89 ug/dL (50-170); Total Iron Binding Capacity 283 ug/dL (250-450); Transferrin Sat 31 % (15-50)
== END 2024-10-03 16:08 | disposition home or self-care (01) ==
LOC: NCHCN 16:07
PROVIDERS: Visit Provider Physician Assistant Medical
DX: I10 Essential (primary) hypertension (principal); K31.84 Gastroparesis; R73.03 Prediabetes; M81.0 Age-related osteoporosis without current pathological fracture
CPT/HCPCS: 80053; 80061; 82306; 82728; 83036; 83540; 83550; 83735; 85025